=== PATIENT | female | born 1965 | race Caucasian/White ===

== ENCOUNTER → 2023-08-24 15:20 | Outpatient (CLI) | payer OTHER, SELFPAY ==
--- NOTE | 2023-08-24 15:21 | DI.MG.S_ITS ---
BILATERAL DIGITAL SCREENING MAMMOGRAM 3D/2D WITH CAD: 08/24/2023 CLINICAL: Routine screening. Comparison is made to exams dated: 07/06/2021 mammogram, 02/28/2019 mammogram, and 10/06/2015 mammogram - outside location. There are scattered areas of fibroglandular density in both breasts (category b / 25%-50% glandular tissue). Current study was also evaluated with a Computer Aided Detection (CAD) system. No significant masses, calcifications, or other findings are seen in either breast. There has been no significant interval change. IMPRESSION: NEGATIVE There is no mammographic evidence of malignancy. A 1 year screening mammogram is recommended. Based on the Tyrer Cuzick model (a risk assessment model) the patient's lifetime risk is 7.0% and her 10 year risk is 2.3%. According to the ACR, ACS, and NCCN guidelines, an annual breast MRI exam along with mammogram is recommended if the patient's lifetime risk is 20% or greater. This exam was interpreted at Station ID: [id number]. NOTE: For mammograms, a report in lay terms will be sent to the patient. Approximately 15% of breast malignancies will not be visualized mammographically. In the management of a palpable breast mass, a negative mammogram must not discourage biopsy of a clinically suspicious lesion. Electronically Signed By: Sourav nguyen/eva:08/25/2023 08:16:03 letter sent: Normal Exam ACR BI-RADS Category 1: Negative 3341F
== END ==
PROVIDERS: PCP Student in an Organized Health Care Education/Training Program; Referring Provider Student in an Organized Health Care Education/Training Program; Visit Provider Student in an Organized Health Care Education/Training Program
DX: Z12.31 Encounter for screening mammogram for malignant neoplasm of breast (principal); R92.323 Mammographic fibroglandular density, bilateral breasts
CPT/HCPCS: 77063; 77067

== ENCOUNTER 2024-01-18 14:06 | Day surgery (SDC) | payer OTHER, SELFPAY ==
--- NOTE | 2024-01-18 | PATH_ITS ---
[facility] Accession Number: [id number] No. of containers..01 Tissue . 01 Material submitted: . gastrointestinal site - ANTRUM . 01 Diagnosis: ANTRUM: Gastric mucosa with minimal chronic inflammation. No Helicobacter organisms identified on H/E stain. No intestinal metaplasia, dysplasia, or malignancy identified. [facility] 01/22/2024 1505 Local . 01 Electronically signed: . Tito Riley MD, Pathologist NPI- [id number] . 01 Gross description: . Received in formalin with two patient identifiers and antrum, are two silva soft tissue fragments, 0.2 to 0.5 cm in greatest dimension. Submitted in A1. ([id number]) /MRV 01/22/2024 1505 Local . 01 Pathologist provided ICD-10: K29.30 . 01 CPT . 695418 Specimen Comment: A courtesy copy of this report has been sent to [phone] Performed at: [address] [facility] [address], [place], [place] [id number] MD Tito Riley MD Phone: [phone]
[2024-01-18] MEDS: LACTATED RINGERS 1,000 ML 100 ML IV (14:55)
[2024-01-18 14:57] VITALS: BP 157/94; PULSE 77; RESP 16; TEMP 36.6; O2SAT 97
--- NOTE | 2024-01-18 15:32 | PM.HP.1 ---
History of Present Illness History of Present Illness Date Patient Seen: 01/18/24 Time Patient Seen: 15:32 Chief complaint: SDC Narrative: Paulina is a 58-year-old woman with gastroesophageal reflux disease and a family history of colon cancer in her sister. See prior office note for details. PFSH Social History Smoking Status: Never smoker alcohol intake: current Meds Home Medications and Allergies Home Medications Medication Instructions Recorded Confirmed Type omeprazole 20 mg capsule,delayed 20 mg PO DAILY 08/08/23 01/18/24 History release Allergies Allergy/AdvReac Type Severity Reaction Status Date / Time No Known Drug Allergies Allergy Verified 01/18/24 14:56 Exam Vital Signs (past 8 hours): - 01/18/24 14:57 Temperature 97.8 F Pulse Rate 77 Respiratory Rate 16 Blood Pressure 157/94 H Pulse Oximetry 97 Oxygen Delivery Method Room Air Oxygen Delivery Method Room Air Const General: healthy appearing and No acute distress Resp Effort & Inspection: normal respiratory effort Assessment & Plan Assessment and plan (1) Family history of colon cancer: Status: Acute (2) GERD (gastroesophageal reflux disease): Qualifiers: Esophagitis presence: esophagitis presence not specified Qualified Code(s): K21.9 - Gastro-esophageal reflux disease without esophagitis Status: Acute Plan We discussed the risks and benefits of EGD and colonoscopy and she would like to proceed. Time-Based Coding :: [TOTAL MINUTES] spent with patient and on the chart (including review of chart, obtaining history, exam, reviewing outside data, placing orders, documenting exam and treatment plan, and counseling patient) on [DATE].
--- NOTE | 2024-01-18 16:16 | PM.OP.EC ---
Operative Date/Time/Diagnoses Date of procedure: 01/18/24 Time of procedure: 16:16 Pre-op diagnosis: GERD and family history cancer Post-op diagnosis: same Procedure & Clinicians Study performed: EGD and colonoscopy Same procedure as scheduled: Yes Surgeon: Jarod Mijares Procedure Notes Procedure in detail: Surgeon: Jarod Mijares MD Anesthesia: Eleni Martinez CRNA Procedure in detail: A timeout was performed. A bite blocked was placed and monitors were attached to the patient. The patient was positioned in the left lateral decubitus position. Sedation was administered. Once the patient was sedated the endoscope was inserted through the bite block and passed through the esophagus and stomach and into the duodenum. No abnormalities were identified. We then withdrew the scope into the stomach. Random biopsies were taken from the antrum. The endoscope was retroflexed and a small to moderate hiatal hernia was noted. The endoscope was straightned and withdrawn into the esophagus. The hiatal hernia was a proximally 3 cm and it was 36 cm to the GE junction. EGD findings: Hiatal hernia Next we repositioned the patient for a colonoscopy. A digital rectal exam was performed and was normal. The colonoscope was inserted and advanced to the cecum. The appendiceal orifice was identified and photographed. The scope was slowly withdrawn over greater than 6 minutes. No abnormalities were found. The scope was retroflexed in the rectum and no abnormalities were seen. Colonoscopy findings: Normal colon Total procedural EBL: 3 mL Scope withdrawal time: 10 minutes Sedation minutes: 19 minutes Post-procedure Recommendations: Colonscopy in 10 years Disposition: PACU
[2024-01-18 16:19] VITALS: BP 129/86; PULSE 74; RESP 21; TEMP 36.3; O2SAT 96
[2024-01-18 16:26] VITALS: BP 127/87; PULSE 74; RESP 16; O2SAT 97
[2024-01-18 16:28] VITALS: BP 144/92; PULSE 74; RESP 19; TEMP 36.7; O2SAT 97
== END 2024-01-18 16:35 | disposition home or self-care (01) ==
PROVIDERS: PCP Student in an Organized Health Care Education/Training Program; Referring Provider Surgery; Visit Provider Surgery
PROC: 0DJ08ZZ Inspection of Upper Intestinal Tract, Via Natural or Artificial Opening Endoscopic (ICD-10-PCS; CPT 43235; principal; 2024-01-18 15:00)
PROC: 0DJD8ZZ Inspection of Lower Intestinal Tract, Via Natural or Artificial Opening Endoscopic (ICD-10-PCS; CPT 45378; 2024-01-18 15:00)
DX: Z12.11 Encounter for screening for malignant neoplasm of colon (principal); Z80.0 Family history of malignant neoplasm of digestive organs; K21.9 Gastro-esophageal reflux disease without esophagitis; K44.9 Diaphragmatic hernia without obstruction or gangrene; K29.50 Unspecified chronic gastritis without bleeding
CPT/HCPCS: 45378; 43239; J2704

== ENCOUNTER → 2024-08-28 14:17 | Outpatient (CLI) | payer OTHER, SELFPAY ==
--- NOTE | 2024-08-28 14:18 | DI.MG.S_ITS ---
BILATERAL DIGITAL SCREENING MAMMOGRAM 3D/2D WITH CAD: 08/28/2024 CLINICAL: Routine screening. Comparison is made to exams dated: 08/24/2023 mammogram - , 07/06/2021 mammogram, and 02/28/2019 mammogram - outside location. There are scattered areas of fibroglandular density (category b / 25%-50% glandular tissue). Current study was also evaluated with a Computer Aided Detection (CAD) system. No significant masses, calcifications, or other findings are seen in either breast. There has been no significant interval change. IMPRESSION: NEGATIVE There is no mammographic evidence of malignancy. A 1 year screening mammogram is recommended. Based on the Tyrer Cuzick model (a risk assessment model) the patient's lifetime risk is 6.9% and her 10 year risk is 2.4%. According to the ACR, ACS, and NCCN guidelines, an annual breast MRI exam along with mammogram is recommended if the patient's lifetime risk is 20% or greater. This exam was interpreted at Station ID: [id number]. NOTE: For mammograms, a report in lay terms will be sent to the patient. Approximately 15% of breast malignancies will not be visualized mammographically. In the management of a palpable breast mass, a negative mammogram must not discourage biopsy of a clinically suspicious lesion. Electronically Signed By: López olivarez/eva:08/29/2024 06:19:50 letter sent: Normal Exam ACR BI-RADS Category 1: Negative
== END ==
PROVIDERS: PCP Student in an Organized Health Care Education/Training Program; Referring Provider Student in an Organized Health Care Education/Training Program; Visit Provider Student in an Organized Health Care Education/Training Program
DX: Z12.31 Encounter for screening mammogram for malignant neoplasm of breast (principal)
CPT/HCPCS: 77063; 77067